=== PATIENT | female | born 1990 | race Caucasian/White ===

== ENCOUNTER 2020-11-28 14:11 | Emergency (ER) | payer OTHER, MEDICAID, SELFPAY ==
[2020-11-28] VITALS (10 sets, daily range): BP systolic 105–129; BP diastolic 62–80; PULSE 86–103; RESP 14–18; TEMP 36.9; O2SAT 93–98; BMI 23.1
[2020-11-28 14:42] LABS: COVID19 -Nasal RAPID Negative (Negative)
[2020-11-28] MEDS: ALBUTEROL/IPRATROPIUM 3 ML AMPUL INH (16:40)
--- NOTE | 2020-11-28 17:14 | DI.RAD.S_ITS ---
PROCEDURE: XR CHEST 2V INDICATIONS: sob, asthma TECHNIQUE: 2 views of the chest were acquired. COMPARISON: None. FINDINGS: Surgical changes and devices: None. Lungs and pleura: Lungs are clear. No pleural effusions or pneumothorax. Mediastinum: Mediastinal contours are normal. Heart size is normal. Bones and chest wall: No suspicious bony abnormalities. Soft tissues appear unremarkable. IMPRESSION: No acute cardiopulmonary abnormalities or focal airspace disease. Dictated by: De Grimes M.D. on 11/28/2020 at 18:43 Approved by: De Grimes M.D. on 11/28/2020 at 18:44
--- NOTE | 2020-11-28 19:28 | ED_ITS ---
HPI - SOB/Dyspnea <JEMIMA Vaughn - Last Filed: 11/28/20 19:32> General Chief Complaint: Shortness of Breath/Dyspnea Stated Complaint: asthma attacks, sent from [facility] Time Seen by Provider: 11/28/20 15:26 Source: patient Mode of arrival: Ambulatory Limitations: no limitations History of Present Illness HPI Narrative: The patient is a 30-year-old female nonsmoker with history of asthma presents with a chief complaint of an asthma exacerbation. She has been using her inhaler at least 6 times per day, not using a spacer. She states she has a dry cough, sometimes productive sometimes not, denies any fevers nausea vomiting or diarrhea. She states that she was on steroids twice recently for her asthma, but then got worse again. She states her breathing gets worse after exercise outside and exposure to cats, though she has not been around cats recently. Related Data Previous Rx's Medication Instructions Recorded albuterol sulfate 90 mcg/actuation 2 puff INHALATION Q4-6H PRN #18 g 10/30/20 aerosol inhaler methylprednisolone 4 mg tablets in See Rx Instructions PO PER PKG DIR 11/09/20 a dose pack #21 ea ipratropium-albuterol 3 ml INHALATION Q3-4H PRN #90 ml 11/28/20 nebulizer and compressor #1 ea 11/28/20 prednisone 40 mg PO DAILY 5 Days #10 tab 11/28/20 Allergies Allergy/AdvReac Type Severity Reaction Status Date / Time No Known Drug Allergies Allergy Verified 11/28/20 14:22 Review of Systems <JEMIMA Vaughn - Last Filed: 11/28/20 19:32> Review of Systems Narrative: GENERAL: Denies chills, fatigue, malaise, fever, sweats. HEENT: Denies sinus pain, ear pain, sore throat, difficulty swallowing, dizziness. RESPIRATORY: See HPI CARDIOVASCULAR: Denies chest pain, palpitations, orthopnea, edema, GASTROINTESTINAL: Denies nausea, vomiting, abdominal pain, diarrhea, constipation, melena. : Denies dysuria, frequency, incontinence, hematuria, urinary retention. MUSCULOSKELETAL: denies weakness, joint pain, or bony pain SKIN: Denies rash, skin lesions, or other NEUROLOGIC: Denies weakness, headache, numbness, change in speech, confusion, seizures, incoordination. PSYCHIATRIC: No concerning psychosocial issues. 12 point review of systems is negative except for those stated above Patient History <JEMIMA Vaughn - Last Filed: 11/28/20 19:32> Social History Smoking Status: Unknown if ever smoked Smoking Status: Unknown if ever smoked alcohol intake frequency: holidays/special occasions only Substance Use Type: does not use Exam <JEMIMA Vaughn - Last Filed: 11/28/20 19:32> Narrative Exam Narrative: GENERAL: This is a well-nourished, well-developed patient, in no acute distress HEAD: Atraumatic. Normocephalic. No temporal or scalp tenderness. EYES: Pupils equal round and reactive. Extraocular motions intact. No scleral icterus. No injection or drainage. ENT: Nose without bleeding, purulent drainage or septal hematoma. Wearing a mask Airway patent. NECK: Trachea midline. No JVD or lymphadenopathy. Supple, nontender, no meningeal signs. CARDIOVASCULAR: Regular rate and rhythm RESPIRATORY: Clear to auscultation. Breath sounds equal bilaterally. Expiratory wheeze, speaking full sentences, laying on stretcher relax BACK: Nontender without deformity or crepitance. No flank tenderness. NEURO: AOx3. SKIN: No rash or erythema on visible skin Initial Vital Signs Initial Vital Signs: Vital Signs Temperature 98.4 F 11/28/20 14:16 Pulse Rate 86 11/28/20 14:16 Respiratory Rate 14 11/28/20 14:16 Blood Pressure 125/62 11/28/20 14:16 Pulse Oximetry 94 11/28/20 14:16 <Telly Flanagan DO - Last Filed: 11/28/20 19:43> Initial Vital Signs Initial Vital Signs: Vital Signs Temperature 98.4 F 11/28/20 14:16 Pulse Rate 86 11/28/20 14:16 Respiratory Rate 14 11/28/20 14:16 Blood Pressure 125/62 11/28/20 14:16 Pulse Oximetry 94 11/28/20 14:16 Scores <JEMIMA Vaughn - Last Filed: 11/28/20 19:32> GCS Noemi coma scale eye opening: Spontaneous [place] coma scale verbal response: Orientated Noemi coma scale motor response: Obey commands Noemi coma scale total score: 15 Course <JEMIMA Vaughn - Last Filed: 11/28/20 19:32> Orders Ordered: ED Orders 11/28/20 14:21 COVID19 -Nasal swab/Pre-Proc Stat 11/28/20 16:16 RT Consult Eval and Treat NOW 11/28/20 17:14 XR chest 2V Stat Discontinued Medications Albuterol/Ipratropium (Albuterol/Ipratropium 3 Ml Ampul) 3 ml INH NOW ONE Stop: 11/28/20 16:37 Last Admin: 11/28/20 16:40 Dose: 3 ml Documented by: STHOMP Vital Signs Vital signs: Vital Signs - 8 hr 11/28/20 14:16 11/28/20 15:43 11/28/20 16:00 Temperature 98.4 F Pulse Rate 86 99 H 99 H Respiratory Rate 14 Blood Pressure 125/62 105/80 115/72 Pulse Oximetry 94 93 96 11/28/20 16:30 11/28/20 16:57 11/28/20 17:00 Temperature Pulse Rate 93 H 100 H 95 H Respiratory Rate 18 Blood Pressure 107/72 108/75 Pulse Oximetry 95 97 94 11/28/20 17:30 11/28/20 18:00 11/28/20 18:30 Temperature Pulse Rate 100 H 103 H 96 H Respiratory Rate Blood Pressure 114/74 121/74 129/80 Pulse Oximetry 97 96 98 11/28/20 19:00 Temperature Pulse Rate 99 H Respiratory Rate Blood Pressure 121/74 Pulse Oximetry 97 <Telly Flanagan DO - Last Filed: 11/28/20 19:43> Orders Ordered: ED Orders 11/28/20 14:21 COVID19 -Nasal swab/Pre-Proc Stat 11/28/20 16:16 RT Consult Eval and Treat NOW 11/28/20 17:14 XR chest 2V Stat Discontinued Medications Albuterol/Ipratropium (Albuterol/Ipratropium 3 Ml Ampul) 3 ml INH NOW ONE Stop: 11/28/20 16:37 Last Admin: 11/28/20 16:40 Dose: 3 ml Documented by: STHOMP Vital Signs Vital signs: Vital Signs - 8 hr 11/28/20 14:16 11/28/20 15:43 11/28/20 16:00 Temperature 98.4 F Pulse Rate 86 99 H 99 H Respiratory Rate 14 Blood Pressure 125/62 105/80 115/72 Pulse Oximetry 94 93 96 11/28/20 16:30 11/28/20 16:57 11/28/20 17:00 Temperature Pulse Rate 93 H 100 H 95 H Respiratory Rate 18 Blood Pressure 107/72 108/75 Pulse Oximetry 95 97 94 11/28/20 17:30 11/28/20 18:00 11/28/20 18:30 Temperature Pulse Rate 100 H 103 H 96 H Respiratory Rate Blood Pressure 114/74 121/74 129/80 Pulse Oximetry 97 96 98 11/28/20 19:00 Temperature Pulse Rate 99 H Respiratory Rate Blood Pressure 121/74 Pulse Oximetry 97 MDM - SOB/Dyspnea <JEMIMA Vaughn - Last Filed: 11/28/20 19:32> Lab Data Labs: Lab Results 11/28/20 Range/Units 14:21 SARS-CoV-2 (PCR) Negative (Negative) Imaging Data Chest x-ray: Radiologist's Impression: [address] [place] [id number] ReportSigned Patient: Eber Olson#: [id number]: 1990Acct:[id number]/Sex: 30 / FDate of Service: 11/28/20Loc: EDAccession Number: [id number] Procedure: XR chest 2V Ordering Provider: Reema Cherry PROCEDURE: XR CHEST 2V INDICATIONS: sob, asthma TECHNIQUE: 2 views of the chest were acquired. COMPARISON: None. FINDINGS: Surgical changes and devices: None. Lungs and pleura: Lungs are clear. No pleural effusions or pneumothorax. Mediastinum: Mediastinal contours are normal. Heart size is normal. Bones and chest wall: No suspicious bony abnormalities. Soft tissues appear unremarkable. IMPRESSION: No acute cardiopulmonary abnormalities or focal airspace disease. Dictated by: De Grimes M.D. on 11/28/2020 at 18:43 Approved by: De Grimes M.D. on 11/28/2020 at 18:44 [facility] Narrative Medical decision making narrative: The patient is a 30-year-old female who presents with a chief complaint of an asthma exacerbation. Given that she has been on steroids multiple times recently x-ray was taken to rule out any infectious etiology. This resulted negative. She had a respiratory therapy eval and treat, and felt improved after the nebulizer. Thus I gave her prescription of a nebulizer. I encouraged at length follow up with primary care provider in the next few days. She may benefit from an asthma preventative medication and or allergy/immunology testing. I discussed at length coming back to the ER for any acute concerns. Patient has no questions or concerns upon discharge states understanding return precautions as well as follow-up care. She has been hemodynamically stable throughout her stay in the emergency department. <Telly Flanagan, DO - Last Filed: 11/28/20 19:43> Lab Data Labs: Lab Results 11/28/20 Range/Units 14:21 SARS-CoV-2 (PCR) Negative (Negative) Discharge Plan Departure Patient Disposition: Home Clinical Impression: Asthma with exacerbation Qualifiers: Asthma severity: unspecified severity Asthma persistence: unspecified Qualified Code(s): J45.901 - Unspecified asthma with (acute) exacerbation Instructions: DI for Asthma -- Adult, How to Use a Nebulizer, How to Use Metered-Dose Inhalers Activity Restrictions/Additional Instructions: Thank you for trusting us with your care today. As discussed, your COVID-19 test resulted negative and your x-ray no evidence of pneumonia. However given your increased wheezing and shortness of breath I have placed you on a burst of steroids. Please start this tomorrow. I have also given you a prescription for a nebulizer as well as medication for this. Please follow-up with primary care provider in the next few days. You may benefit from allergy testing, and asthma preventative medication, etcetera Please come back to the emergency department for any acute concerns Prescriptions: New prednisone 20 mg tablet 40 mg PO DAILY 5 Days Qty: 10 RF: 0 ipratropium-albuterol 0.5 mg-3 mg(2.5 mg base)/3 mL solution for nebulization 3 ml inhalation Q3-4H PRN (Reason: shortness of breath or wheezing) Qty: 90 RF: 0 (DME) nebulizer and compressor Device See Rx Instructions .ROUTE .MEDSUPPLY Qty: 1 RF: 0 No Action methylprednisolone [Medrol (Leandro)] 4 mg tablets,dose pack See Rx Instructions PO PER PKG DIR Qty: 21 RF: 0 methylprednisolone sod suc(PF) [Solu-Medrol (PF)] 125 mg/2 mL recon soln 125 mg IM ONCE Qty: 1 RF: 0 albuterol sulfate [Proventil HFA] 90 mcg/actuation HFA aerosol inhaler 2 puff inhalation Q4-6H PRN (Reason: shortness of breath or wheezing) Qty: 18 RF: 0 Referrals: Edwina Haro PA-C [Primary Care Provider] - <Telly Flanagan, - Last Filed: 11/28/20 19:43> Cosign ED Attending Cosignature Attestation: Dr Flanagan Co-Sign Statement: I was available for consultation during this patient's emergency department visit. This chart is signed by myself for administrative purposes only. I did not have direct contact with this patient during this visit. They were seen independently by the APC.
== END 2020-11-28 19:20 | disposition home or self-care (01) ==
PROVIDERS: Emergency Medicine; Emergency Provider Nurse Practitioner Family; PCP Physician Assistant
DX: J45.901 Unspecified asthma with (acute) exacerbation (principal); R05 Cough; Z20.822 Contact with and (suspected) exposure to COVID-19
CPT/HCPCS: 71046; 87635; 94150; 99283; C9803

== ENCOUNTER → 2021-02-01 13:08 | Outpatient (CLI) | payer OTHER, MEDICAID, SELFPAY ==
[2021-02-01 19:31] LABS: COVID19 - ORCAS (NP or Nasal) Negative (Negative)
== END ==
PROVIDERS: PCP Physician Assistant; Referring Provider Family Medicine; Visit Provider Family Medicine
DX: Z20.822 Contact with and (suspected) exposure to COVID-19 (principal); J45.40 Moderate persistent asthma, uncomplicated; R06.2 Wheezing
CPT/HCPCS: U0003

== ENCOUNTER 2021-09-10 18:40 | Inpatient (IN) | payer OTHER, MEDICAID, SELFPAY ==
[2021-09-10 18:48] VITALS: BP 107/60; PULSE 88; RESP 20; TEMP 36.8; O2SAT 99
--- NOTE | 2021-09-10 18:57 | ED_ITS ---
HPI - Overdose General Chief Complaint: Toxicology Problem Stated Complaint: tylenol 20 tabs, 2200 last night. Time Seen by Provider: 09/10/21 18:44 Source: patient Mode of arrival: Ambulatory Limitations: no limitations History of Present Illness HPI Narrative: This is a 31-year-old female who comes in with complaint of acetaminophen ingestion. Patient states she took approximately 20-25 tablets of 500 mg Tylen ol at 10:00 p.m. on 09/09/2021. Patient states she has been having depressed thoughts, she has significant financial debt and this has been weighing on her. She has had thoughts of harming herself because of because she does not feel that she can resolve these issues. She is unclear of her true intent was to kill herself she states she also had cramps but when asked if she intentionally took that many tablets she says yes. She states she informed her boyfriend who drove her here after waking up this morning being quite sleepy and then having some nausea and vomiting. Patient states that she has had thoughts and attempts to harm herself in the past she denies any prior voluntary or involuntary hospitalizations. Patient states she has had epigastric and abdominal pain, nausea with some vomiting today. No fevers but has had some chills. She denies chest pain or shortness of breath. No cough, cold or congestion. Patient has not had any diarrhea constipation. No swelling in her extremities. She uses albuterol and a daily steroid inhaler. She denies any other daily medications. She denies prior surgeries. No known drug allergies. Patient denies tobacco, she states rare alcohol, no illicit. Edwina Haro is her primary care. She has attempted to set up appointments for mental health but has not been seen 2nd to lack of access. Related Data Previous Rx's Medication Instructions Recorded nebulizer and compressor #1 ea 11/28/20 albuterol sulfate 90 mcg/actuation 2 puff INHALATION Q4-6H PRN #18 g 03/06/21 aerosol inhaler (Proventil HFA) fluticasone 500 mcg-salmeterol 50 1 inh INHALATION Q12H #60 ea 03/06/21 mcg/dose blistr powdr for inhalation (Advair Diskus) prednisone 20 mg tablet 20 mg PO DAILY #8 tab 03/06/21 Allergies Allergy/AdvReac Type Severity Reaction Status Date / Time No Known Drug Allergies Allergy Verified 11/28/20 14:22 Review of Systems Review of Systems ROS Unobtainable: All systems reviewed & are unremarkable except as noted in HPI and below Patient History Medical History (Updated 09/11/21 @ 00:06 by JEROD Panda) Acute bacterial bronchitis Surgical History (Updated 09/11/21 @ 00:07 by JEROD Panda) No history of previous surgery Social History household members: significant other Smoking Status: Never smoker Smoking Status: Never smoker alcohol intake frequency: holidays/special occasions only Substance Use Type: does not use Exam Narrative Exam Narrative: GENERAL: Alert and oriented x three, female, in mild distress. HEENT: Head normocephalic, atraumatic, EOMI, pupils reactive, face symmetric, moist mucous membranes NECK: Supple, full range of motion CARDIOVASCULAR: Regular rate and rhythm without murmurs, rubs or gallops. RESPIRATORY: Breath sounds equal bilaterally, no wheezes rales or rhonchi. ABDOMEN: Soft, positive for epigastric tenderness. Normoactive bowel sounds all 4 quadrants. No guarding or rebound, rigidity, no mass : No CVA tenderness EXTREMITIES: Normal range of motion, no clubbing or edema. Neurovascularly intact NEUROLOGICAL: Cranial nerves II through XII grossly intact. Moving all extremities SKIN: Warm, dry, no petechiae, no rashes or lesions. PYSCH: Patient denies active suicidal ideation or intent, she did attempt yesterday, she describes anxiety and depressive symptoms. Initial Vital Signs Initial Vital Signs: Vital Signs Temperature 98.2 F 09/10/21 18:48 Pulse Rate 88 09/10/21 18:48 Respiratory Rate 20 09/10/21 18:48 Blood Pressure 107/60 09/10/21 18:48 Pulse Oximetry 99 09/10/21 18:48 Course Orders Ordered: ED Orders 09/10/21 18:55 Consult to ANATOMIC PATHOLOGY ASSISTANT - [employer] Developer Stat 09/10/21 19:20 Acetaminophen Stat Complete Blood Count AUTO DIFF Stat Comprehensive Metabolic Panel Stat Ethanol (ETOH) Stat Hepatic (Liver) Panel Stat Lipase Stat Salicylate Stat 09/10/21 19:43 COVID19 -Nasal swab/Pre-Proc Stat 09/10/21 20:10 Ammonia (NH3) Stat Lactate (Lactic Acid) Stat PTT [Partial Thromboplastin Time] Stat Prothrombin Time INR Stat 09/10/21 21:30 Urine Drug Screen, Rapid Stat Enoxaparin Sodium (Enoxaparin 40 Mg/0.4 Ml Syringe) 40 mg SUBCUT DAILY MARILIA Acetylcysteine 3.96343 g/ (Dextrose) 515.8758 mls @ 128.969 mls/hr IV NOW ONE Stop: 09/11/21 02:59 Last Admin: 09/10/21 23:02 Dose: 128.969 mls/hr Documented by: QUINCY Acetylcysteine 6.3503 g/ (Dextrose) 1,031.7515 mls @ 64.484 mls/hr IV NOW ONE Stop: 09/11/21 18:59 Ibuprofen (Ibuprofen 600 Mg Tablet) 600 mg PO Q6HR PRN PRN Reason: Fever/Mild Pain (1-3) Naloxone HCl (Naloxone 0.4 Mg/Ml Vial) 0.2 mg IV Q2MIN PRN PRN Reason: Opiate Reversal Discontinued Medications Sodium Chloride (Normal Saline 0.9%) 1,000 mls @ 1,000 mls/hr IV BOLUS ONE Stop: 09/10/21 19:54 Last Infusion: 09/10/21 20:46 Dose: 0 mls/hr Documented by: Admin: 09/10/21 19:43 Dose: 1,000 mls/hr Documented by: LIDIA Acetylcysteine 9.54743 g/ (Dextrose) 247.6273 mls @ 247.627 mls/hr IV NOW ONE Stop: 09/10/21 19:54 Last Infusion: 09/10/21 21:26 Dose: 0 mls/hr Documented by: Admin: 09/10/21 20:16 Dose: 247.627 mls/hr Documented by: NICCI Acetylcysteine 3.71699 g/ (Dextrose) 515.8758 mls @ 128.969 mls/hr IV NOW ONE Stop: 09/10/21 19:54 Last Admin: 09/10/21 23:51 Dose: Not Given Documented by: QUINCY Acetylcysteine 6.3503 g/ (Dextrose) 1,031.7515 mls @ 64.484 mls/hr IV NOW ONE Stop: 09/10/21 19:54 Last Admin: 09/10/21 23:51 Dose: Not Given Documented by: QUINCY Acetylcysteine 3.62685 g/ (Dextrose) 515.8758 mls @ 128.969 mls/hr IV NOW ONE Stop: 09/10/21 21:31 Last Admin: 09/10/21 23:52 Dose: Not Given Documented by: QUINCY Ondansetron HCl (Ondansetron 4 Mg/2 Ml Inj) 4 mg IV NOW ONE Stop: 09/10/21 18:56 Last Admin: 09/10/21 19:43 Dose: 4 mg Documented by: LIDIA Reevaluation(s) Reevaluation #1: Patient updated of findings today and recommendations from poison Control. She is agreeable to hospitalization. Consultations Consultation #1: Poison control recommendations include Tylenol level which should be expected to be negative if elevated patient either took a larger dose or took recurrent amounts after the time frame described. If LFTs are normal patient can be discharged if elevated in any way NAC should be started and admitted for several days for serial LFTs. Time: 19:02 Consultation #2: Poison control recontacted, they state the patient should be on the standard dosing protocol for n-acetylcysteine not the high-dose. They recommend monitoring LFTs and INR 1 2 hours before complaining neck. If LFTs have normalized as well as an are can be stopped. If they are rising or not improving repeated dosing are recommended. Vital Signs Vital signs: Vital Signs - 8 hr 09/10/21 18:48 Temperature 98.2 F Pulse Rate 88 Respiratory Rate 20 Blood Pressure 107/60 Pulse Oximetry 99 MDM - Overdose Lab Data Result diagrams: 09/10/21 19:20 09/10/21 19:20 Labs: Lab Results 09/10/21 09/10/21 09/10/21 Range/Units 19:20 19:20 19:43 WBC 6.9 (4.5-11.0) X10^3/uL RBC 4.53 (4.0-5.2) X10^6/uL Hgb 13.4 (12.0-16.0) g/dL Hct 39.6 (36-46) % MCV 87.5 (80-100) fL MCH 29.6 (26-34) PG MCHC 33.8 (30-36) % RDW 13.0 (11.6-14.8) % Plt Count 286 (150-400) X10^3/uL Neut % (Auto) 83.9 H (50-75) % Lymph % (Auto) 9.4 L (25-40) % Jasper % (Auto) 5.1 (3-14) % Eos % (Auto) 1.1 L (2-4) % Baso % (Auto) 0.5 (0-2) % Neut # (Auto) 5800 (9781-1044) /uL Lymph # (Auto) 600 L (5676-7192) /uL Jasper # (Auto) 400 (0-900) /uL Eos # (Auto) 100 (0-450) /uL Baso # (Auto) 0 (0-100) /uL PT (10.1-12.7) SECONDS INR (0.9-1.3) APTT (26.4-36.2) SECONDS Sodium 137 (137-145) mmol/L Potassium 3.8 (3.4-5.1) mmol/L Chloride 107 (98-107) mmol/L Carbon Dioxide 21 L (22-32) mmol/L BUN 21 H (7-17) mg/dL Creatinine 0.73 (0.52-1.04) mg/dL Estimated GFR > 60.0 (>60) mL/min BUN/Creatinine Ratio 28.8 H (6-22) Glucose 96 (70-100) mg/dL Lactate (0.7-2.1) mmol/L Calcium 8.9 (8.4-10.2) mg/dL Total Bilirubin 0.6 (0.2-1.3) mg/dL Conjugated Bilirubin 0.0 (0.0-0.3) md/dL Unconjugated Bilirubin 0.6 (0.0-1.1) mg/dL AST 115 H (14-36) IU/L ALT 111 H (<35) IU/L Alkaline Phosphatase 65 (38-126) U/L Ammonia (9-30) umol/L Total Protein 7.6 (6.3-8.2) g/dL Albumin 4.4 (3.5-5.0) g/dL Globulin 3.2 (1.7-4.1) g/dL Albumin/Globulin Ratio 1.4 (1.0-2.8) Lipase 39 (23-300) U/L Salicylates < 1.0 (<20) mg/dL Acetaminophen 12 (10-30) ug/mL Ethyl Alcohol < 10 ( - 10) mg/dL SARS-CoV-2 (PCR) Negative (Negative) 09/10/21 09/10/21 09/10/21 Range/Units 20:10 20:10 20:10 WBC (4.5-11.0) X10^3/uL RBC (4.0-5.2) X10^6/uL Hgb (12.0-16.0) g/dL Hct (36-46) % MCV (80-100) fL MCH (26-34) PG MCHC (30-36) % RDW (11.6-14.8) % Plt Count (150-400) X10^3/uL Neut % (Auto) (50-75) % Lymph % (Auto) (25-40) % Jasper % (Auto) (3-14) % Eos % (Auto) (2-4) % Baso % (Auto) (0-2) % Neut # (Auto) (2378-4809) /uL Lymph # (Auto) (0872-0547) /uL Jasper # (Auto) (0-900) /uL Eos # (Auto) (0-450) /uL Baso # (Auto) (0-100) /uL PT 14.1 H (10.1-12.7) SECONDS INR 1.2 (0.9-1.3) APTT 33 (26.4-36.2) SECONDS Sodium (137-145) mmol/L Potassium (3.4-5.1) mmol/L Chloride (98-107) mmol/L Carbon Dioxide (22-32) mmol/L BUN (7-17) mg/dL Creatinine (0.52-1.04) mg/dL Estimated GFR (>60) mL/min BUN/Creatinine Ratio (6-22) Glucose (70-100) mg/dL Lactate 0.8 (0.7-2.1) mmol/L Calcium (8.4-10.2) mg/dL Total Bilirubin (0.2-1.3) mg/dL Conjugated Bilirubin (0.0-0.3) md/dL Unconjugated Bilirubin (0.0-1.1) mg/dL AST (14-36) IU/L ALT (<35) IU/L Alkaline Phosphatase (38-126) U/L Ammonia < 9 L (9-30) umol/L Total Protein (6.3-8.2) g/dL Albumin (3.5-5.0) g/dL Globulin (1.7-4.1) g/dL Albumin/Globulin Ratio (1.0-2.8) Lipase (23-300) U/L Salicylates (<20) mg/dL Acetaminophen (10-30) ug/mL Ethyl Alcohol ( - 10) mg/dL SARS-CoV-2 (PCR) (Negative) Point of Care Testing Test Results Negative MDM Narrative Medical decision making narrative: This is a 31-year-old female comes emergency department for complaint of Tylenol overdose. Patient states she took 20-25 tablets last night at about 10:00 p.m. she is somewhat evasive as to why, she initially states she had cramps but does admit to attempting to kill herself. She denies intent at this time. Patient's LFTs are very mildly elevated, renal function and other labs are normal she has had some abdominal pain and nausea but no active vomiting she had fluids, Zofran with some improvement. Poison control recommendation was re-contacted based on nomogram with a Tylenol level of 12 and elevated LFTs at this time and acetylcysteine should be initiated at standard protocol. Plan to continue to monitor LFTs shortly before the completion of NAC. If coags and LFTs are still elevated will need to continue to be treated. If resolved patient can be m edically cleared. Discussed with patient she is agreeable to admission. ANATOMIC PATHOLOGY ASSISTANT also soft patient here in the department. Naloxone at Discharge Patient criteria for naloxone at discharge: Other reason Reason patient is not provided naloxone?: Other reason (admitted for tylenol overdose.) Discharge Plan Departure Patient Disposition: Admitted as Observation Clinical Impression: Overdose on Tylenol Admit Date/Time: 09/10/21 20:40 Admit Provider: Sharla Kelly
[2021-09-10 19:31] LABS: Add Manual Diff / Slide Review NO; Basophils Absolute Auto 0 /uL (0-100); Basophils Percent Auto 0.5 % (0-2); Eosinophils Absolute Auto 100 /uL (0-450); Eosinophils Percent Auto 1.1 % (2-4); Hematocrit 39.6 % (36-46); Hemoglobin 13.4 g/dL (12.0-16.0); Lymphocytes Absolute Auto 600 /uL (1100-4500); Lymphocytes Percent Auto 9.4 % (25-40); Mean Corpuscular HGB Conc 33.8 % (30-36); Mean Corpuscular Hemoglobin 29.6 PG (26-34); Mean Corpuscular Volume 87.5 fL (80-100); Monocytes Absolute Auto 400 /uL (0-900); Monocytes Percent Auto 5.1 % (3-14); Neutrophils Absolute Auto 5800 /uL (1500-7000); Neutrophils Percent Auto 83.9 % (50-75); Platelet Count 286 X10^3/uL (150-400); Red Blood Cell Count 4.53 X10^6/uL (4.0-5.2); White Blood Cell Count 6.9 X10^3/uL (4.5-11.0)
[2021-09-10 19:43] LABS: Acetaminophen 12 ug/mL (10-30); Alanine Aminotransferase 111 IU/L (<35); Albumin 4.4 g/dL (3.5-5.0); Albumin Globulin Ratio 1.4 (1.0-2.8); Alkaline Phosphatase 65 U/L (38-126); Aspartate Aminotransferase 115 IU/L (14-36); BUN Creatinine Ratio 28.8 (6-22); Bilirubin Total 0.6 mg/dL (0.2-1.3); Bilirubin Unconjugated 0.6 mg/dL (0.0-1.1); Blood Urea Nitrogen 21 mg/dL (7-17); Calcium 8.9 mg/dL (8.4-10.2); Carbon Dioxide 21 mmol/L (22-32); Chloride 107 mmol/L (98-107); Estimated Glomerular Filt Rate > 60.0 mL/min (>60); Ethanol (ETOH) < 10 mg/dL; Globulin 3.2 g/dL (1.7-4.1); Glucose 96 mg/dL (70-100); HEMOLYSIS < 15 (0-50); Lipase 39 U/L (23-300); Potassium 3.8 mmol/L (3.4-5.1); Salicylate < 1.0 mg/dL (<20); Sodium 137 mmol/L (137-145); Total Protein 7.6 g/dL (6.3-8.2)
[2021-09-10] MEDS: SODIUM CHLORIDE 0.9% 1,000 ML 1000 ML IV (19:43)
[2021-09-10] MEDS: ONDANSETRON 4 MG/2 ML INJ IV (19:43)
--- NOTE | 2021-09-10 20:06 | CM.DANOTE ---
DCP Assessment Patient is 31 y/o female who presents to the ED after intentional overdose of 20-25 500 mg tylenol. Patient endorses intent to numb pain. Patient states that she is having debt issues and struggling with credit card payments with a tight budget. Patient endorses she was having cramp pains and wanted to numb the physical and emotional stress. Patient endorses she has been emotionally up and down. Patient denies current SI. Patient endorses hx of wanting to numb the pain when she could not sleep. Patient's PCP JEROD Barahona. Patient has [employer] and Medicaid. Patient has hx of Asthma. Patient endorses she resides with partner Rainer on [address]. It is reported that they live off of the [address] with spotty cell service and no internet. Patient endorses she feels safe at home. Patient endorses she feels safe at this hospital, feels cared for and connected. Patient denies HI and denies hx of self harm. Patient endorses that she moved here from [place] and before [facility] [place] and it has been difficult to see a doctor regularly or too seek MH services. Patient endorses she used to take antidepressants but does not currently. Patient endorses her supports are her partner, and her sister in [place]. Per ED provider and consult to poison control, patient is not medically clear due to high AST and ALT levels. Plan: Patient to be admitted to acute care for further medical evaluation, DCP to f/u with appropriate POC for patient when medically clear. MARIZA Jackson Discharge Planning/Care Management CM Discharge Assessment Start: 09/10/21 20:02 Freq: Status: Active Protocol: Document 09/10/21 20:02 DONALD (Rec: 09/10/21 20:05 LN [id number]) Discharge Planning Assessment Assigned Surveyor Helper MARIZA Mcgregor Advance Directives? No History Provided By Patient Has Patient been admitted in last 30 No days? Prior Living Arrangements House Comment Patient lives off the [address] on [facility] [facility] [address]. Household Members significant other Type of transporation used prior to Drives own vehicle admit Independent with ADL's Yes Is patient alert and oriented? Yes Comment Patient denies current SI and states she overdoses on Tylenol with intent to numb pain. Patient is not medically clear and will need further medical evaluation, patient to be admitted to acute care. Review Status In Process Please Provide Date Initial DC 09/10/21 Assessment Was Performed Next Review Type Continued Stay Review ED Psychiatric Symptoms Assessment Start: 09/10/21 19:36 Freq: Status: Active Protocol: Document 09/10/21 19:45 DKB (Rec: 09/10/21 19:52 DKB [id number]) Psychiatric Symptoms Assessment Symptoms/Complaint impulsive state Onset 09/10 Duration Resolved Prior to Arrival History Of Same Yes: over 4 years ago Context Unknown Improves With Nothing Worsens With Nothing Associated Psychiatric Symptoms None If Self Harm Has Acted on Plan,Intentional Overdose Details of Plan Pt reports that she impulsively took too many APAP yesterday, no longer feels as she did, does not currently want harm herself. 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
[2021-09-10] MEDS: DEXTROSE 5% IV ×2 (20:16→23:02)
[2021-09-10] MEDS: ACETYLCYSTEINE IV ×2 (20:16→23:02)
[2021-09-10] MEDS: WATER IV (20:16)
[2021-09-10 20:28] LABS: COVID19 -Nasal RAPID Negative (Negative)
[2021-09-10 20:42] LABS: INR 1.2 (0.9-1.3); Prothrombin Time 14.1 SECONDS (10.1-12.7)
[2021-09-10 20:45] LABS: PTT Partial Thromboplastin Tim 33 SECONDS (26.4-36.2)
[2021-09-10 20:48] LABS: Ammonia (NH3) < 9 umol/L (9-30); Lactate (Lactic Acid) 0.8 mmol/L (0.7-2.1)
[2021-09-10 21:50] VITALS: BMI 23.6
[2021-09-10 22:00] VITALS: BP 109/49; PULSE 94; RESP 15; TEMP 36.6; O2SAT 99
[2021-09-10 22:10] LABS: UR Morphine/Opiate cutoff 300 Negative (Negative); Ur Creatinine 50 (Normal); Ur Specific Gravity 1.025 (Normal); Urine Amphetamines Negative (Negative); Urine Barbiturates Negative (Negative); Urine Benzodiazepines Negative (Negative); Urine Cocaine Negative (Negative); Urine MDMA Negative (Negative); Urine Methadone Negative (Negative); Urine Methamphetamines Negative (Negative); Urine Oxycodone Negative (Negative); Urine Phencyclidine Negative (Negative); Urine Tetrahydrocannabinol Negative (Negative); Urine Tricyclic Antidepressant Negative (Negative); Urine pH 5 (Normal)
[2021-09-10 22:19] LABS: Bacteria Urine Many (>30); RBC Urine 1-5/HPF (0-5/HPF); Squamous Epithelial Cell Urine 0-1 /HPF (0-5/HPF); WBC Urine 1-5/HPF (0-5/HPF)
[2021-09-10] MEDS: [UNRECOGNIZED DRUG - OTHER] IV (23:02)
[2021-09-11] VITALS (8 sets, daily range): BP systolic 100–111; BP diastolic 50–64; PULSE 81–93; RESP 16–22; TEMP 36.6–37.1; O2SAT 95–99; BMI 23.6
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
[2021-09-11] MEDS: ACETYLCYSTEINE IV ×2 (02:40→18:45)
[2021-09-11] MEDS: [UNRECOGNIZED DRUG - OTHER] IV ×2 (02:40→18:45)
[2021-09-11 06:03] LABS: Add Manual Diff / Slide Review NO; Basophils Absolute Auto 0 /uL (0-100); Basophils Percent Auto 0.5 % (0-2); Eosinophils Absolute Auto 200 /uL (0-450); Eosinophils Percent Auto 3.6 % (2-4); Hematocrit 37.9 % (36-46); Hemoglobin 12.7 g/dL (12.0-16.0); Lymphocytes Absolute Auto 1300 /uL (1100-4500); Lymphocytes Percent Auto 19.3 % (25-40); Mean Corpuscular HGB Conc 33.4 % (30-36); Mean Corpuscular Hemoglobin 29.2 PG (26-34); Mean Corpuscular Volume 87.4 fL (80-100); Monocytes Absolute Auto 400 /uL (0-900); Monocytes Percent Auto 6.3 % (3-14); Neutrophils Absolute Auto 4600 /uL (1500-7000); Neutrophils Percent Auto 70.3 % (50-75); Platelet Count 262 X10^3/uL (150-400); Red Blood Cell Count 4.34 X10^6/uL (4.0-5.2); Red Cell Distribution Width 13.1 % (11.6-14.8); White Blood Cell Count 6.5 X10^3/uL (4.5-11.0)
[2021-09-11 06:12] LABS: Alanine Aminotransferase 107 IU/L (<35); Albumin 3.5 g/dL (3.5-5.0); Albumin Globulin Ratio 1.3 (1.0-2.8); Alkaline Phosphatase 38 U/L (38-126); Aspartate Aminotransferase 74 IU/L (14-36); Bilirubin Total 0.6 mg/dL (0.2-1.3); Bilirubin Unconjugated 0.8 mg/dL (0.0-1.1); Blood Urea Nitrogen 14 mg/dL (7-17); Calcium 8.1 mg/dL (8.4-10.2); Carbon Dioxide 22 mmol/L (22-32); Chloride 107 mmol/L (98-107); Estimated Glomerular Filt Rate > 60.0 mL/min (>60); Globulin 2.8 g/dL (1.7-4.1); Glucose 113 mg/dL (70-100); HEMOLYSIS < 15 (0-50); Potassium 3.4 mmol/L (3.4-5.1); Sodium 136 mmol/L (137-145); Total Protein 6.3 g/dL (6.3-8.2)
[2021-09-11 07:03] LABS: INR 1.6 (0.9-1.3); Prothrombin Time 18.1 SECONDS (10.1-12.7)
[2021-09-11] MEDS: ENOXAPARIN 40 MG/0.4 ML SYRINGE SUBCUT (08:48)
[2021-09-11] MEDS: POTASSIUM CHLORIDE 20 MEQ TAB 40 MEQ PO (10:07)
[2021-09-11 15:35] LABS: INR 1.5 (0.9-1.3); Prothrombin Time 16.7 SECONDS (10.1-12.7)
[2021-09-11 15:40] LABS: Acetaminophen < 10 ug/mL (10-30); Alanine Aminotransferase 241 IU/L (<35); Albumin 3.4 g/dL (3.5-5.0); Albumin Globulin Ratio 1.3 (1.0-2.8); Alkaline Phosphatase 56 U/L (38-126); Aspartate Aminotransferase 283 IU/L (14-36); Bilirubin Total 0.3 mg/dL (0.2-1.3); Bilirubin Unconjugated 0.4 mg/dL (0.0-1.1); Globulin 2.7 g/dL (1.7-4.1); HEMOLYSIS < 15 (0-50); Total Protein 6.1 g/dL (6.3-8.2)
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
[2021-09-11] MEDS: ONDANSETRON 4 MG/2 ML INJ IV (20:22)
[2021-09-12] VITALS (11 sets, daily range): BP systolic 99–116; BP diastolic 54–73; PULSE 77–93; RESP 12–24; TEMP 36.5–37.1; O2SAT 96–99
[2021-09-12 05:41] LABS: Alanine Aminotransferase 704 IU/L (<35); Albumin 3.6 g/dL (3.5-5.0); Albumin Globulin Ratio 1.2 (1.0-2.8); Alkaline Phosphatase 43 U/L (38-126); Aspartate Aminotransferase 720 IU/L (14-36); BUN Creatinine Ratio 17.2 (6-22); Bilirubin Total 0.4 mg/dL (0.2-1.3); Blood Urea Nitrogen 11 mg/dL (7-17); Calcium 8.4 mg/dL (8.4-10.2); Carbon Dioxide 26 mmol/L (22-32); Chloride 107 mmol/L (98-107); Estimated Glomerular Filt Rate > 60.0 mL/min (>60); Globulin 2.9 g/dL (1.7-4.1); Glucose 103 mg/dL (70-100); HEMOLYSIS 24 (0-50); Potassium 4.1 mmol/L (3.4-5.1); Sodium 136 mmol/L (137-145); Total Protein 6.5 g/dL (6.3-8.2)
[2021-09-12 06:47] LABS: INR 1.2 (0.9-1.3); Prothrombin Time 13.5 SECONDS (10.1-12.7)
[2021-09-12] MEDS: ENOXAPARIN 40 MG/0.4 ML SYRINGE SUBCUT (08:48)
--- NOTE | 2021-09-12 11:08 | PM.PN.1 ---
Subjective Subjective Date Patient Seen: 09/12/21 Interval history: Patient reports nausea today. She also complains of shortness of breath. She would like to resume her inhaler. Her LFT's are elevated and increasing. She denies any abdominal pain. Discussed with poison control. They recommend continuing the NAC, and following liver function tests closely Exam Vital Signs (past 8 hours): - 09/12/21 04:25 09/12/21 07:50 09/12/21 08:20 Temperature 97.7 F 98.1 F Pulse Rate 77 85 Respiratory Rate 14 16 Blood Pressure 99/59 L 105/73 Pulse Oximetry 96 97 97 Oxygen Delivery Method Room Air Oxygen Flow Rate 0 Narrative Exam Narrative: Pleasant female with somewhat flat affect, tearful Resp Other: Lungs clear to auscultation Cardio Other: Cardiac exam: Regular rate rhythm normal S1-S2 GI Other: Abdomen: Soft nontender nondistended Extrem Other: Extremity: No edema Objective Labs Result Diagrams: 09/11/21 05:15 09/12/21 05:15 Labs: Laboratory Results - last 24 hr 09/11/21 09/11/21 09/12/21 15:19 15:19 05:15 PT 16.7 H INR 1.5 H Sodium 136 L Potassium 4.1 Chloride 107 Carbon Dioxide 26 BUN 11 Creatinine 0.64 Estimated GFR > 60.0 BUN/Creatinine Ratio 17.2 Glucose 103 H Calcium 8.4 Total Bilirubin 0.3 0.4 Conjugated Bilirubin 0.0 Unconjugated Bilirubin 0.4 AST 283 H 720 H ALT 241 H 704 H Alkaline Phosphatase 56 43 Total Protein 6.1 L 6.5 Albumin 3.4 L 3.6 Globulin 2.7 2.9 Albumin/Globulin Ratio 1.3 1.2 Acetaminophen < 10 L 09/12/21 06:29 PT 13.5 H INR 1.2 Sodium Potassium Chloride Carbon Dioxide BUN Creatinine Estimated GFR BUN/Creatinine Ratio Glucose Calcium Total Bilirubin Conjugated Bilirubin Unconjugated Bilirubin AST ALT Alkaline Phosphatase Total Protein Albumin Globulin Albumin/Globulin Ratio Acetaminophen [facility] Medical History (Updated 09/11/21 @ 00:06 by JEROD Panda) Acute bacterial bronchitis Surgical History (Updated 09/11/21 @ 00:07 by JEROD Panda) No history of previous surgery Social History household members: significant other Smoking Status: Never smoker Assessment & Plan Assessment & Plan narrative: 1. Acetaminophen overdose -patient reports in inverted overdose of Tylenol -she admits to stressors, and is tearful -she denies suicidal ideation -will continue NAC S directed by poison Control, follow-up LFTs -psych consult while an inpatient 2. Asthma -resume outpatient inhalers Patient will remain in the hospital until liver function studies have improved. Time Spent With Patient Critical Care time: I spent a total of [] minutes of critical care time on this patient's care today; this time is exclusive of procedural time. Quality VTE Deep Vein Thrombosis/Pulmonary Embolism Present on Admission: No
[2021-09-12] MEDS: [UNRECOGNIZED DRUG - OTHER] IV (11:17)
[2021-09-12] MEDS: ACETYLCYSTEINE IV (11:17)
[2021-09-12] MEDS: ONDANSETRON 4 MG/2 ML INJ IV (12:30)
--- NOTE | 2021-09-12 12:33 | PC.NURSE ---
Addendum entered by Kirstin Nicole R.N. 09/12/21 18:03: 1500 assessment. pt sleeping in room. IVF infusing. call light in reach. Original Note: boyfriend in room helping her go to the bathroom. door remains open at all times. pt report nausea when eating, I gave her zofran so she could try eating her lunch. voiding without difficulty.
[2021-09-12] MEDS: ALBUTEROL 2.5 MG/3 ML NEB (ADULT) INH ×3 (12:34→20:30)
--- NOTE | 2021-09-12 12:56 | P.CONS_ITS ---
History of Present Illness Consult details Date Patient Seen: 09/12/21 Time Patient Seen: 13:00 Chief complaint: Acetaminophen overdose Reason for consult: Rule out depression and suicide attempt Requesting provider: Celia Bhakta Narrative: REFERRAL INFORMATION This is the first psychiatric evaluation for this 31-year-old female referred by hospitalist for evaluation of possible depression and suicide attempt in the context of an inadvertent acetaminophen overdose. RECORDS REVIEW The patient?s referral documents, medical records and intake questionnaire were reviewed as part of this evaluation. CONSULT QUESTION CHIEF COMPLAINT ?I have just been going through a rough time.? HISTORY OF PRESENT ILLNESS The patient was in her usual state of fairly good health until yesterday when she had difficulty with significant menstrual cramps and started to take Tylenol. It soon ?got out of hand? and the patient ended up taking 20-25 tablets of 500 mg acetaminophen. She became immediately concerned, informed her boyfriend, who brought her in for medical attention. The patient was admitted through the emergency department and started on an acetyl cystine. The patient reports a history of several months of worsening financial stressors. The patient had come to [facility] with her boyfriend last spring to visit the boyfriend's aunt and uncle. The patient and her boyfriend were [facility] and had just moved to [place] from [facility]. Shortly after visiting, the aunt became ill with a cerebral aneurysm and the uncle requested their help in taking care of her noting that they had no employment number relatively free at the time. After the aunt recovered, they decided to stay on [facility] and enjoyed ?living off the grid? somewhat. 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 Unfortunately, just as winter arrived, there business decreased drastically and there also kicked out of their rental house. They found another rental which [place] essentially [place] [address] [place] [address] [place] [address] [place] was quite [place]. Has well water, electricity from a solar panel, and an out house. Although is kind of fun to live in a primitive environment for awhile, over the course of the winter it soon became quite dreary. Despite having some electricity, they had very poor to almost no cell phone coverage. The patient reported that as the dark months ensued, she became more depressed and discouraged. The patient complains of difficulty with moderately depressed mood, increased sleep, decreased energy, no motivation, anhedonia, poor concentration, and vague nihilistic thoughts. She denies any symptoms of almita, psychosis, or PTSD. The patient currently denies any suicidal or homicidal ideation, intent, or plan. PAST PSYCHIATRIC HISTORY * Diagnoses: Moderate depression a couple of years ago when living in [facility] * Inpatient: None. * Outpatient: Saw therapist which she found most helpful. Previously saw psychiatrist who started her on an unknown antidepressant but did not have good follow-up. * Suicide Attempts: None. PREVIOUS PSYCHIATRIC MEDICATION TRIALS One prior brief trial of an unknown antidepressant. CURRENT PSYCHOTROPIC MEDICATIONS None FAMILY HISTORY * Maternal: Possible history of untreated depression in mother * Paternal: None. * Siblings: None. SUBSTANCE USE HISTORY * Tobacco: The patient does not smoke. * Alcohol: The patient does not drink. No history of abuse. * Drugs: The patient does not use drugs. DEVELOPMENTAL AND SOCIAL HISTORY * Family Constellation/Environment: Patient was born and raised in [facility] [place] and describes a generally unremarkable childhood. * Childhood Trauma: The patient denied any history of physical or sexual abuse, and has no history of witnessing violence as a child. * Developmental milestones: The patient reached normal developmental milestones. * Education: The patient was an adequate student in school and graduated from high school. * Employment: The patient states that she ?won the [employer]? and was able to get a diversity visa to the [place] to immigrate. * Relationships: The patient is never , no children, but currently has a boyfriend she considers her partner. She also has some relatives in [facility] in [place]. * Current Living: Lives with boyfriend on [facility] * Support: Income from employment. * Legal: No current legal difficulties. HISTORY * None. * Deployments: N/A * Combat Exposure: N/A * Blast Exposure: N/A SIGNIFICANT MEDICAL HISTORY * PCP: None known * Allergies: NKDA * Medical Problems: History of exercise-induced asthma. * Current Medications: See list above. * Herbals/Supplements: None. Meds Home Medications and Allergies Home Medications Medication Instructions Recorded Confirmed Type nebulizer and compressor #1 ea 11/28/20 09/11/21 Rx albuterol sulfate 90 mcg/actuation 2 puff INHALATION Q4-6H PRN #18 g 03/06/21 09/11/21 Rx aerosol inhaler (Proventil HFA) fluticasone 500 mcg-salmeterol 50 1 inh INHALATION Q12H #60 ea 03/06/21 09/11/21 Rx mcg/dose blistr powdr for inhalation (Advair Diskus) prednisone 20 mg tablet 20 mg PO DAILY #8 tab 03/06/21 09/11/21 Rx Allergies Allergy/AdvReac Type Severity Reaction Status Date / Time No Known Drug Allergies Allergy Verified 11/28/20 14:22 Review of Systems Review of Systems ROS: Yes All systems reviewed with the patient and are negative except as otherwise documented Exam Vital Signs (past 8 hours): - 09/12/21 07:50 09/12/21 08:20 09/12/21 12:34 Temperature 98.1 F Pulse Rate 85 85 Respiratory Rate 16 14 Blood Pressure 105/73 Pulse Oximetry 97 97 99 Oxygen Delivery Method Room Air Oxygen Flow Rate 0 Narrative Exam Narrative: MENTAL STATUS EXAM * Appearance: The patient is a rather petite but well-developed and well- nourished female who appears her stated age. * Grooming: She is seen in her hospital room neatly dressed in hospital gown lying in bed. * Behavior: Calm and cooperative with the evaluation * Gait: Not test * Speech: Normal rate, volume, and devaughn * Mood: ?Kind of down lately. * Affect: Pleasant, smiling, generally neutral for the most part, but mildly dysphoric. Congruent with content, normal range and reactivity * Thought Process: Linear, logical, and goal-directed * Thought Content: Denies suicidal ideation, denies homicidal ideation, intent or plan; and there was no evidence of a formal thought or perceptual disturbance. * Attention: Attentive to interview * Orientation: Oriented to person, place, time, and circumstance * Memory: Intact for interview, not formally tested * Insight: Fair * Judgment: Fair Objective Labs Result Diagrams: 09/11/21 05:15 09/12/21 05:15 Labs: Laboratory Results - last 24 hr 09/11/21 09/11/21 09/12/21 15:19 15:19 05:15 PT 16.7 H INR 1.5 H Sodium 136 L Potassium 4.1 Chloride 107 Carbon Dioxide 26 BUN 11 Creatinine 0.64 Estimated GFR > 60.0 BUN/Creatinine Ratio 17.2 Glucose 103 H Calcium 8.4 Total Bilirubin 0.3 0.4 Conjugated Bilirubin 0.0 Unconjugated Bilirubin 0.4 AST 283 H 720 H ALT 241 H 704 H Alkaline Phosphatase 56 43 Total Protein 6.1 L 6.5 Albumin 3.4 L 3.6 Globulin 2.7 2.9 Albumin/Globulin Ratio 1.3 1.2 Acetaminophen < 10 L 09/12/21 06:29 PT 13.5 H INR 1.2 Sodium Potassium Chloride Carbon Dioxide BUN Creatinine Estimated GFR BUN/Creatinine Ratio Glucose Calcium Total Bilirubin Conjugated Bilirubin Unconjugated Bilirubin AST ALT Alkaline Phosphatase Total Protein Albumin Globulin Albumin/Globulin Ratio Acetaminophen PFSH Medical History Acute bacterial bronchitis Surgical History No history of previous surgery Social History household members: significant other Tobacco & Substance Use Smoking Status: Never smoker Assessment & Plan Assessment & Plan narrative: ASSESSMENT/MEDICAL DECISION MAKING The patient is a 31-year-old female who has been under significant psychosocial stressors including financial stress, substandard housing, social isolation, and after going through a fairly dark and rainy [place] winter noted significant symptoms of depression. She made a rather impulsive and half- hearted suicide gesture by taking overdose of Tylenol but then immediately acted to rectify the problem and sought medical help. DIAGNOSES/PROBLEMS Major depressive disorder, single episode, moderate, without psychotic features RECOMMENDATIONS 1. The patient does not require inpatient psychiatric hospitalization. 2. The patient is currently not felt to be suicidal and relatively low risk for harm to self or others at this time. 3. The patient should seek out or be referred to mental health counseling. 4. The patient may benefit from antidepressant medications and will discuss this with her before she is discharged. 5. The patient and her partner should consider accessing social service resources to improve their housing and employment situation. 6. Will continue to follow with you during patient's stay. Time Spent With Patient Time with patient: 30 to 49 minutes with 50% spent counseling/coordinating care
[2021-09-12] MEDS: BUDESONIDE 0.5 MG/2 ML NEB INH (20:30)
[2021-09-12 22:33] LABS: Albumin 3.7 g/dL (3.5-5.0); Albumin Globulin Ratio 1.2 (1.0-2.8); Alkaline Phosphatase 38 U/L (38-126); BUN Creatinine Ratio 10.8 (6-22); Bilirubin Total 0.4 mg/dL (0.2-1.3); Blood Urea Nitrogen 8 mg/dL (7-17); Carbon Dioxide 28 mmol/L (22-32); Chloride 103 mmol/L (98-107); Estimated Glomerular Filt Rate > 60.0 mL/min (>60); Globulin 3.1 g/dL (1.7-4.1); Glucose 159 mg/dL (70-100); HEMOLYSIS < 15 (0-50); Potassium 3.5 mmol/L (3.4-5.1); Sodium 136 mmol/L (137-145); Total Protein 6.8 g/dL (6.3-8.2)
[2021-09-12 22:39] LABS: Aspartate Aminotransferase 737 IU/L (14-36)
[2021-09-12 22:44] LABS: Alanine Aminotransferase 1210 IU/L (<35)
[2021-09-13 01:03] LABS: Bilirubin Unconjugated 0.4 mg/dL (0.0-1.1)
[2021-09-13 03:25] LABS: Add Manual Diff / Slide Review NO; Basophils Absolute Auto 0 /uL (0-100); Basophils Percent Auto 0.7 % (0-2); Eosinophils Absolute Auto 500 /uL (0-450); Eosinophils Percent Auto 12.9 % (2-4); Hematocrit 38.4 % (36-46); Hemoglobin 12.9 g/dL (12.0-16.0); Lymphocytes Absolute Auto 1300 /uL (1100-4500); Lymphocytes Percent Auto 30.8 % (25-40); Mean Corpuscular HGB Conc 33.5 % (30-36); Mean Corpuscular Hemoglobin 29.1 PG (26-34); Mean Corpuscular Volume 86.9 fL (80-100); Monocytes Absolute Auto 400 /uL (0-900); Monocytes Percent Auto 9.2 % (3-14); Neutrophils Absolute Auto 1900 /uL (1500-7000); Neutrophils Percent Auto 46.4 % (50-75); Platelet Count 252 X10^3/uL (150-400); Red Blood Cell Count 4.42 X10^6/uL (4.0-5.2); White Blood Cell Count 4.1 X10^3/uL (4.5-11.0)
[2021-09-13 03:30] VITALS: BP 100/62; PULSE 88; RESP 14; TEMP 36.7; O2SAT 98
[2021-09-13 03:35] LABS: INR 1.2 (0.9-1.3); Prothrombin Time 13.3 SECONDS (10.1-12.7)
[2021-09-13 03:40] LABS: Albumin 3.8 g/dL (3.5-5.0); Albumin Globulin Ratio 1.2 (1.0-2.8); Alkaline Phosphatase 44 U/L (38-126); Aspartate Aminotransferase 618 IU/L (14-36); Bilirubin Total 0.4 mg/dL (0.2-1.3); Bilirubin Unconjugated 0.4 mg/dL (0.0-1.1); Globulin 3.1 g/dL (1.7-4.1); HEMOLYSIS < 15 (0-50); Total Protein 6.9 g/dL (6.3-8.2)
[2021-09-13 03:41] LABS: BUN Creatinine Ratio 15.2 (6-22); Blood Urea Nitrogen 10 mg/dL (7-17); Calcium 8.7 mg/dL (8.4-10.2); Carbon Dioxide 27 mmol/L (22-32); Chloride 104 mmol/L (98-107); Estimated Glomerular Filt Rate > 60.0 mL/min (>60); Glucose 107 mg/dL (70-100); HEMOLYSIS < 15 (0-50); Potassium 3.7 mmol/L (3.4-5.1); Sodium 138 mmol/L (137-145)
[2021-09-13 03:51] LABS: Alanine Aminotransferase 1130 IU/L (<35)
--- NOTE | 2021-09-13 04:16 | PM.CALLCOV.1 ---
Call Coverage Note Note Narrative of Care Provided: NAC finished at 0418, LFT's are now trending down. Poison Control advised we can now stop NAC therapy. Will start gentle fluid hydration.
[2021-09-13] MEDS: SODIUM CHLORIDE 0.9% 1,000 ML 84 ML IV (04:28)
[2021-09-13 07:49] LABS: Magnesium 1.8 mg/dL (1.6-2.3); Phosphorous 4.6 mg/dL (2.5-4.5)
--- NOTE | 2021-09-13 09:04 | PC.NURSE ---
Assess- Patient is calm and eating breakfast. She states that she is feeling better today. No suicidal ideation noted. Up independently in room, patient uses call light for needs. She has a friend who has been staying with her.
[2021-09-13] MEDS: ENOXAPARIN 40 MG/0.4 ML SYRINGE SUBCUT (09:21)
[2021-09-13] MEDS: ALBUTEROL 2.5 MG/3 ML NEB (ADULT) INH (09:41)
[2021-09-13] MEDS: BUDESONIDE 0.5 MG/2 ML NEB INH (09:41)
[2021-09-13 09:42] VITALS: PULSE 94; RESP 18; O2SAT 98
[2021-09-13 09:48] VITALS: PULSE 89; RESP 20
--- NOTE | 2021-09-13 10:15 | P.DS_ITS ---
History of Present Illness History of Present Illness Date Patient Seen: 09/13/21 Time Patient Seen: 10:20 Chief complaint: Acetaminophen overdose Narrative: Kathia Olson is a 31 y.o. female with intermittent exercise-induced asthma who reportedly took 20-25 acetaminophen tablets 500 mg each at approximately 2200 on September 09 2021.? Per the ED provider the patient told her she has had significant financial issues and was feeling under a lot of pressure.? In my interview with the patient, she stated that she had significant menstrual cramps and started to take the Tylenol and ?it got out of hand she does complain of a headache, fatigue, nausea without vomiting, denies shortness of breath, chest pain, abdominal pain, dysuria, diarrhea or constipation. Social history:? She and her boyfriend, Rainer Li, live on a off grid home on [facility] without electricity or a regular bathroom.? They had moved there to take care of his ill aunt and and then when she improved, they decided to stay on [facility] and live.? Rainer her boyfriend, states that they want move to [place] where he needs to be to take care of his mother.? Patient was raised in [place] and went to [employer] school there, is originally from [place] [place] and has a sister in [place].? She has invited the sister to visit with them however the sister has not ?had the time? to visit her. No imaging studies were done.? ED consulted with [facility] and the patient was recommended for and N-acetylcystine protocol treatment. Patient is afebrile, blood pressure 102/50, heart rate 93, respiratory rate 17, oxygen saturation 96 9% on room air she weighs 62.5 kg with a BMI of 23.6.? CBC is unremarkable, she does have a little bit of lymphopenia, bicarb is 21, BUN 21, AST 115, ALT 111, ammonia is less than 9, urinalysis included many ?squamous cells? likely a contaminant and culture was not indicated.? Toxicology screen is negative and acetaminophen level is within normal limits as of today.? COVID-19 PCR is negative. Discharge Providers Provider Date of admission: 09/10/21 20:40 Discharge Date: 09/13/21 Primary care physician: Edwina Haro PA-C Consults: 09/10/21 18:55 Consult to INTERIOR HORTICULTURIST - Assistant Quality Manager Stat Comment: INTERIOR HORTICULTURIST Consult needed for:: Behavioral Health Assess 09/10/21 21:20 Consult to Assistant Quality Manager Routine Comment: Suicide attempt 09/12/21 11:28 Consult to Physician Routine Comment: Consulting Provider: Hernesto Hatfield Reason for consultation: Tylenol OD Has provider been notified: Yes Discharge provider: Celia Bhakta MD Summary Hospital Course Discharge Diagnosis: 1. Inadvertent acetaminophen overdose 2. Major depression 3. Exercise-induced asthma Hospital Course: The patient was admitted to the hospital after an inadvertent Tylenol overdose. She was placed on a NAC, for 16 hours and followed along with poison Control. Patient had her Tylenol level reduced to less than 10, however she did developed elevated liver function test. Her AST and ALT peaked at over 700. Continued on the NAC for an additional 16 hours. Her most recent liver function tests show improvement, her AST is 618 down from 737, her ALT is 11 30 down from 12 10. Based on feedback from poison control her in a.c. can be discontinued. The patient was seen in consultation by Dr. Hatfield from Psychiatry. He felt that the patient was not suicidal or homicidal but had major depression. He recommended initiation of antidepressant therapy. I spoke to the patient today she is agreeable to taking an antidepressant. She will be started on Prozac 20 mg daily. Patient has no nausea or complaints of pain. She will be discharged home today. Status at Discharge Cognitive/behavioral status at discharge: oriented Functional status at discharge: independent ambulation Overall status at discharge: patient is progressing back to baseline Exam Vital Signs (past 8 hours): - 09/13/21 03:30 09/13/21 09:42 09/13/21 09:48 Temperature 98.0 F Pulse Rate 88 94 H 89 Respiratory Rate 14 18 20 Blood Pressure 100/62 Pulse Oximetry 98 98 Oxygen Delivery Method Room Air Oxygen Flow Rate 0 Narrative Exam Narrative: Pleasant female lying in bed in no acute distress Resp Other: Lungs clear to auscultation Cardio Other: Cardiac exam: Regular rate and rhythm normal S1-S2 GI Other: Abdomen: Soft nontender nondistended Extrem Other: Extremities: No edema Objective Labs Result Diagrams: 09/13/21 03:15 09/13/21 03:15 Labs: Laboratory Results - last 24 hr 09/12/21 09/12/21 09/13/21 22:15 22:15 03:15 WBC 4.1 L RBC 4.42 Hgb 12.9 Hct 38.4 MCV 86.9 MCH 29.1 MCHC 33.5 RDW 13.0 Plt Count 252 Neut % (Auto) 46.4 L D Lymph % (Auto) 30.8 [place] % (Auto) 9.2 Eos % (Auto) 12.9 H Baso % (Auto) 0.7 Neut # (Auto) 1900 Lymph # (Auto) 1300 [place] # (Auto) 400 Eos # (Auto) 500 H Baso # (Auto) 0 PT INR Sodium 136 L Potassium 3.5 Chloride 103 Carbon Dioxide 28 BUN 8 Creatinine 0.74 Estimated GFR > 60.0 BUN/Creatinine Ratio 10.8 Glucose 159 H Calcium 9.0 Phosphorus Magnesium Total Bilirubin 0.4 Cancelled Conjugated Bilirubin 0.0 Unconjugated Bilirubin 0.4 AST 737 H Cancelled ALT 1210 H Cancelled Alkaline Phosphatase 38 Cancelled Total Protein 6.8 Cancelled Albumin 3.7 Cancelled Globulin 3.1 Cancelled Albumin/Globulin Ratio 1.2 Cancelled 09/13/21 09/13/21 09/13/21 03:15 03:15 03:15 WBC RBC Hgb Hct MCV MCH MCHC RDW Plt Count Neut % (Auto) Lymph % (Auto) [place] % (Auto) Eos % (Auto) Baso % (Auto) Neut # (Auto) Lymph # (Auto) [place] # (Auto) Eos # (Auto) Baso # (Auto) PT 13.3 H INR 1.2 Sodium 138 Potassium 3.7 Chloride 104 Carbon Dioxide 27 BUN 10 Creatinine 0.66 Estimated GFR > 60.0 BUN/Creatinine Ratio 15.2 Glucose 107 H Calcium 8.7 Phosphorus Magnesium Total Bilirubin 0.4 Conjugated Bilirubin 0.0 Unconjugated Bilirubin 0.4 AST 618 H ALT 1130 H Alkaline Phosphatase 44 Total Protein 6.9 Albumin 3.8 Globulin 3.1 Albumin/Globulin Ratio 1.2 09/13/21 09/13/21 03:15 03:15 WBC RBC Hgb Hct MCV MCH MCHC RDW Plt Count Neut % (Auto) Lymph % (Auto) [place] % (Auto) Eos % (Auto) Baso % (Auto) Neut # (Auto) Lymph # (Auto) [place] # (Auto) Eos # (Auto) Baso # (Auto) PT INR Sodium Potassium Chloride Carbon Dioxide BUN Creatinine Estimated GFR BUN/Creatinine Ratio Glucose Calcium Phosphorus 4.6 H Magnesium 1.8 Total Bilirubin Conjugated Bilirubin Unconjugated Bilirubin AST ALT Alkaline Phosphatase Total Protein Albumin Globulin Albumin/Globulin Ratio [facility] Medical History Acute bacterial bronchitis Surgical History No history of previous surgery Social History household members: significant other Smoking Status: Never smoker Discharge Assessment & Plan Assessment and Plan Assessment: Inadvertent acetaminophen overdose 2. Major depression 3. Exercise-induced asthma Plan of Treatment: Discharge home Follow-up with PCP next week Discharge Plan Discharge Plan Patient Disposition: Home Discharge orders & Medications Prescriptions: New fluoxetine [Prozac] 20 mg capsule 20 mg PO DAILY Qty: 30 0RF Continued albuterol sulfate [Proventil HFA] 90 mcg/actuation HFA aerosol inhaler 2 puff inhalation Q4-6H PRN (Reason: shortness of breath or wheezing) Qty: 18 4RF Rx Instructions: patient states she no longer takes. fluticasone propion-salmeterol [Advair Diskus] 500-50 mcg/dose blister with device 1 inh inhalation Q12H Qty: 60 4RF Discontinued methylprednisolone sod suc(PF) [Solu-Medrol (PF)] 125 mg/2 mL recon soln 125 mg IM ONCE Qty: 1 0RF Label Comments: no longer takes prednisone 20 mg tablet 20 mg PO DAILY Qty: 8 0RF Label Comments: No longer takes. Rx Instructions: 1 po q 12 hr x 3 days then 1 po qam x 2 days start 03-07-2021 No Action (DME) nebulizer and compressor Device See Rx Instructions .ROUTE .MEDSUPPLY Qty: 1 0RF Rx Instructions: As directed. Follow up/Referrals: Edwina Haro PA-C [Primary Care Provider] - Discharge Health Status Multidrug resistant organism: No MDRO Diet/Activity/Treatments Diet: Diet as Tolerated Visit Report/Discharge Packet Stand Alone Forms: Naloxone Standing Order WADOH Discharge Data Primary Care Provider: Edwina Haro Quality VTE Deep Vein Thrombosis/Pulmonary Embolism Present on Admission: No
[2021-09-13 10:20] VITALS: BP 119/68; PULSE 115; RESP 16; TEMP 37; O2SAT 99
--- NOTE | 2021-09-13 13:18 | CM.DPNOTE ---
Addendum entered by Tracy Mclean MARIZA 09/13/21 15:17: ADD: Never heard back from [facility] so completed an online referral form w/patient's permission. Used information provided by Dr Hatfield, psychiatrist to outline patient's need for counseling services and case management support on [facility], as soon as possible. JW Original Note: DC Note According to conversation w/Dr Hatfield and review of his consult note- patient is not a candidate for inpatient psychiatric stay and is cleared from psych stand point for DC home w/partner w/close outpatient MH f/u Met w/patient this morning, introduced role. Patient likes to be addressed as Vera. According to our conversation: Patient/partner Rainer had never intended to live on [facility] [address] and plan to move off [place], likely to return to [facility] as soon as they can afford to do so. 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 Patient has a PCP at the [facility] on [facility]. Patient and partner access the [employer] on [place] which patient states has been sufficient for us. Patient is not currently using food stamps; encouraged her to do so. Patient knows how to access social insurance administrator on [place], it is widely advertised at the [employer] and at the Library (where patient/partner often visit to access internet) Patient hopeful that she can speak to a counselor on [facility]; not only because she can more easily access this service if [place], also because she needs to speak to someone that understands [place] life Discussed [facility], who has a clinic site on [facility], and patient agreeable to referral. [facility] Office: [address] , [address], [place] [address] P F This LOADER OPERATOR/GROUND LEADER attempted to phone [facility] and had to LM; may end up completing their online referral form if no call back from access center today, patient and partner Rainer aware of this and will f/u w/ [facility] In addition; placed call to Crisis Line ([facility]) and requested a f/u call tomorrow at 1100, w/patient's permission; 1100- when patient was intending to be in town on [place] and would have cell concierge receptionist. Requested a f/u supportive call to check in with patient and remind her that she is not alone and there are services available to her, discussed the circumstance of patient's visit. Plan: DC w/supportive partner Rainer today, w/close outpatient f/u w/ PCP at [facility] and referral started to [facility] site. Both patient and partner very pleasant, appreciative, and eager to use outpatient resources offered MARIZA Acosta
== END 2021-09-13 13:10 | disposition home or self-care (01) | DRG 812 ==
LOC: ED 20:39 → AC 09-11 02:05
PROVIDERS: Internal Medicine; Admitting Provider Nurse Practitioner Family; Emergency Provider Emergency Medicine; PCP Physician Assistant; Referring Provider Emergency Medicine; Visit Provider Nurse Practitioner Family
DX: T39.1X1A Poisoning by 4-Aminophenol derivatives, accidental (unintentional), initial encounter (principal); F32.1 Major depressive disorder, single episode, moderate; R51.9 Headache, unspecified; R11.0 Nausea; J45.990 Exercise induced bronchospasm; Z20.822 Contact with and (suspected) exposure to COVID-19
CPT/HCPCS: 36415; 80048; 80053; 80076; 80305; 80320; 80329; 81003; 81015; 81025; 82140; 82248; 83605; 83690; 83735; 84100; 85025; 85610; 85730; 87077; 87086; 87186; 87635; 90792; 94640; 94760; 94762; 96365; 96375; 99284; C9803; G0480; J0132; J1650; J2405; J7613

== ENCOUNTER → 2024-08-22 12:21 | Outpatient (CLI) | payer OTHER, SELFPAY ==
[2024-07-18 13:13] VITALS: BMI 23.6
[2024-08-22 13:03] LABS: Appearance Urine UA SL CLOUDY; Bilirubin Urine UA NEGATIVE (NEGATIVE); Color Urine UA YELLOW; Glucose Urine UA NEGATIVE (Negative); Ketones Urine UA 1+ (NEGATIVE); Leukocyte Esterase Urine UA NEGATIVE (NEGATIVE); Nitrite Urine UA NEGATIVE (Negative); Occult Blood Urine UA NEGATIVE (Negative); Protein Urine UA NEGATIVE (Negative); Specific Gravity Urine UA 1.015 (1.000-1.035); Urobilinogen Urine UA 0.2 E.U./dL (0.2)
[2024-08-22 13:12] LABS: Add Manual Diff / Slide Review NO; Basophils Absolute Auto 0 /uL (0-100); Basophils Percent Auto 0.6 % (0-2); Eosinophils Absolute Auto 700 /uL (0-450); Eosinophils Percent Auto 8.9 % (2-4); Hematocrit 38.4 % (36-46); Hemoglobin 13.2 g/dL (12.0-16.0); Lymphocytes Absolute Auto 1400 /uL (1100-4500); Mean Corpuscular HGB Conc 34.4 % (30-36); Mean Corpuscular Hemoglobin 30.1 PG (26-34); Mean Corpuscular Volume 87.5 fL (80-100); Monocytes Absolute Auto 400 /uL (0-900); Monocytes Percent Auto 4.4 % (3-14); Neutrophils Absolute Auto 5500 /uL (1500-7000); Neutrophils Percent Auto 68.1 % (50-75); Platelet Count 272 X10^3/uL (150-400); Red Blood Cell Count 4.39 X10^6/uL (4.0-5.2); Red Cell Distribution Width 12.9 % (11.6-14.8)
[2024-08-22 15:50] LABS: HIV 1 & 2 Ab/Ag 4th Gen Combo NEGATIVE (NEGATIVE); Hep C Virus Ab w/Reflex Quant NEGATIVE s/c (NEGATIVE); Hepatitis B Surface Antigen NEGATIVE s/c (NEGATIVE)
[2024-08-22 17:40] LABS: Free T4, Direct Thyroxine 1.13 ng/dL (0.78-2.19)
[2024-08-22 17:53] LABS: Thyroid Stimulating Hormone 0.714 uIU/mL (0.47-4.68)
[2024-08-22 18:03] LABS: Alanine Aminotransferase 11 IU/L (<35); Albumin 4.2 g/dL (3.5-5.0); Albumin Globulin Ratio 1.6 (1.0-2.8); Alkaline Phosphatase 54 U/L (38-126); Aspartate Aminotransferase 19 IU/L (14-36); BUN Creatinine Ratio 14.3 (6-22); Bilirubin Total 0.3 mg/dL (0.2-1.3); Blood Urea Nitrogen 8 mg/dL (7-17); Calcium 9.3 mg/dL (8.4-10.2); Carbon Dioxide 18 mmol/L (22-32); Chloride 104 mmol/L (98-107); Estimated Glomerular Filt Rate > 60 mL/min (>60); Globulin 2.7 g/dL (1.7-4.1); Glucose 84 mg/dL (70-100); HEMOLYSIS < 15 (0-50); Potassium 4.1 mmol/L (3.4-5.1); Sodium 133 mmol/L (137-145); Total Protein 6.9 g/dL (6.3-8.2)
[2024-08-24 04:08] LABS: RPR Screen Non Reactive (Non Reactive)
== END ==
PROVIDERS: PCP Family Medicine; Referring Provider Family Medicine; Visit Provider Family Medicine
DX: Z34.00 Encounter for supervision of normal first pregnancy, unspecified trimester (principal)
CPT/HCPCS: 80053; 80055; 81003; 84439; 84443; 86787; 86803; 86850; 86900; 86901; 87086; 87389

== ENCOUNTER → 2024-09-26 10:19 | Outpatient (CLI) | payer OTHER, SELFPAY ==
[2024-07-18 13:13] VITALS: BMI 23.6
--- NOTE | 2024-09-26 10:20 | DI.US.S_ITS ---
PROCEDURE: US OB >= 14 WEEKS FETUS INDICATIONS: Complete Anatomy Scan OUTSIDE/PRIOR DATING DATA: Last menstrual period (LMP): Unknown. LMP-based estimated date of delivery (CELIA): 02/10/2025. First dating scan (date and location): 07/04/2024. [facility]. Estimated date of delivery (CELIA) from first dating scan: 01/27/2025. The calculations are made using the clinical CELIA of 02/10/2025. TECHNIQUE: Real-time scanning was performed of the fetus, with image documentation and biometric measurements. Endovaginal scanning: Not performed COMPARISON: Outside Facility, US, US OB >= 14 WEEKS FETUS, 07/04/2024, 17:16. FINDINGS: General: A single living intrauterine gestation is present. Presentation: Variable. Placenta: Placental position is anterior, without previa. Amniotic fluid index: 14.3 cm, normal range is 5-24 cm. Single deepest vertical pocket is 3.9 cm. heart rate: 145 beats per minute. Maternal cervical canal: 4.1 cm long. Normal lower limit is 2.5 cm. biometrics: Biparietal diameter: 4.6 cm, 20 weeks 0 days Head circumference: 17.5 cm, 20 weeks 0 days Abdominal circumference: 16.4 cm, 21 weeks 3 days Femur length: 3.2 cm, 20 weeks 0 days Clinically estimated gestational age: 20 weeks 3 days Composite gestational age from present scan: 20 weeks 3 days Estimated weight and percentile: 371 g, 60th percentile. Anatomic survey: Neuro: Ventricles are non-dilated at less than 10 mm. Cisterna magna is normal at 3-11 mm. Cerebellum is normal in size and morphology. Nuchal skin fold: Normal at less than 6 mm between 14-21 weeks gestational age. Face: Nose and lips, facial profile are normal. Spine: No evidence for spina bifida. Heart: 4-chambered heart is present, with normal ventricular outflow tracts. Diaphragm: Diaphragm is intact. Stomach: Left-sided stomach is present. Kidneys: No hydronephrosis. Normal is less than 5 mm in 2nd trimester, less than 7 mm in 3rd trimester. Cord: 3-vessel cord has orthotopic insertion. Bladder: Normal in size. Extremities: All 4 extremities identified. Left uterine fibroid measuring 7.7 x 5.8 x 5.7 cm. IMPRESSION: 1. Baig living intrauterine at 20 weeks 3 days based on today's ultrasound. Fetus is in the 60th percentile for weight. 2. Normal placenta and amniotic fluid. 3. Normal and complete anatomic survey. 4. Left uterine fibroid measuring 7.7 cm. We strive to produce accurate, complete, and clear reports of imaging services. To assist us in improving patient care, this report was composed using standard report templates and voice recognition software. Therefore, it may contain abnormal punctuation, insertions and/or omissions. Occasional wrong-word or sound-alike substitutions may occur. Though we review the report and make efforts to correct it, we do recommend that the report be read carefully in proper context to recognize any text inaccuracies. Dictated by: Kiko Peacock M.D. on 09/26/2024 at 13:48 Approved by: Kiko Peacock M.D. on 09/26/2024 at 13:57
== END ==
LOC: US 10:20
PROVIDERS: PCP Family Medicine; Referring Provider Family Medicine; Visit Provider Family Medicine
DX: O34.12 Maternal care for benign tumor of corpus uteri, second trimester; Z3A.20 20 weeks gestation of pregnancy; Z36.89 Encounter for other specified antenatal screening
CPT/HCPCS: 76811

== ENCOUNTER → 2024-10-17 10:01 | Outpatient (CLI) | payer OTHER, SELFPAY ==
[2024-07-18 13:13] VITALS: BMI 23.6
[2024-10-17 12:20] LABS: GTT (PREG) 1 Hour PP 50gm Dose 101 mg/dL (76-139)
== END ==
PROVIDERS: PCP Family Medicine; Referring Provider Family Medicine; Visit Provider Family Medicine
DX: Z34.00 Encounter for supervision of normal first pregnancy, unspecified trimester (principal)
CPT/HCPCS: 36415; 82950

== ENCOUNTER → 2024-12-12 13:06 | Outpatient (CLI) | payer OTHER, SELFPAY ==
[2024-07-18 13:13] VITALS: BMI 23.6
== END ==
PROVIDERS: PCP Family Medicine; Visit Provider Family Medicine
DX: Z34.00 Encounter for supervision of normal first pregnancy, unspecified trimester (principal); N89.8 Other specified noninflammatory disorders of vagina
CPT/HCPCS: 87086

== ENCOUNTER → 2025-01-20 14:00 | Outpatient (CLI) | payer OTHER, SELFPAY ==
[2024-07-18 13:13] VITALS: BMI 23.6
[2025-01-21 11:56] LABS: Strep Grp B PCR POS for Grp B Strep
== END ==
PROVIDERS: PCP Family Medicine; Visit Provider Family Medicine
DX: Z36.85 Encounter for antenatal screening for Streptococcus B (principal)
CPT/HCPCS: 87653

== ENCOUNTER 2025-01-30 05:56 | Inpatient (IN) | payer OTHER, SELFPAY ==
[2024-07-18 13:13] VITALS: BMI 23.6
[2025-01-30 07:10] LABS: Add Manual Diff / Slide Review NO; Hematocrit 36.4 % (36-46); Hemoglobin 12.5 g/dL (12.0-16.0); Lymphocytes Absolute Auto 1400 /uL (1100-4500); Mean Corpuscular HGB Conc 34.2 % (30-36); Mean Corpuscular Hemoglobin 30.4 PG (26-34); Mean Corpuscular Volume 88.8 fL (80-100); Platelet Count 187 X10^3/uL (150-400)
[2025-01-30 07:19] VITALS: BP 114/70
[2025-01-30 07:19] LABS: Alanine Aminotransferase 17 IU/L (<35); Albumin 3.3 g/dL (3.5-5.0); Albumin Globulin Ratio 1.1 (1.0-2.8); Alkaline Phosphatase 143 U/L (38-126); Blood Urea Nitrogen 8 mg/dL (7-17); Calcium 8.7 mg/dL (8.4-10.2); Carbon Dioxide 20 mmol/L (22-32); Chloride 109 mmol/L (98-107); Estimated Glomerular Filt Rate > 60 mL/min (>60); Globulin 2.9 g/dL (1.7-4.1); Glucose 88 mg/dL (70-99); HEMOLYSIS < 15 (0-50); Potassium 4.2 mmol/L (3.4-5.1); Sodium 134 mmol/L (137-145); Total Protein 6.2 g/dL (6.3-8.2)
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
[2025-01-30] MEDS: CEFAZOLIN 2 GM/100 ML PREMIX 100 ML IV (08:25)
[2025-01-30] MEDS: AZITHROMYCIN 500 MG in DEXTROSE 5% IN WATER 250 ML 250 MG IV (08:32)
--- NOTE | 2025-01-30 08:49 | SUR.OPER ---
Supine on Padded OR bed, head on pillow, safety belt at thigh, arms secured on padded arm boards at <90 degrees abduction. Bump under right buttock. Legs uncrossed with pillow under knees, gel pad to heels, tape over blanket to lower legs.
[2025-01-30] MEDS: TRANEXAMIC ACID 1,000 MG in SODIUM CHLORIDE 0.9% 100 ML 200 MG IV (09:02)
[2025-01-30] MEDS: ACETAMINOPHEN IV 1,000 MG/100 ML VIAL 400 MG IV (09:13)
--- NOTE | 2025-01-30 09:16 | SUR.OPER ---
Viable baby girl born at 0851 on 01/30/2025.
--- NOTE | 2025-01-30 09:40 | P.OP_ITS ---
Operative Date/Time/Diagnoses Date of procedure: 01/30/25 Time of procedure: 08:45 Pre-op diagnosis: Breech presentation Post-op diagnosis: same Procedure & Clinicians Procedure: Primary Low transverse CS Same procedure(s) as scheduled: Yes Indications: Breech presentation Surgeon: Kari Jolly Click Yes if Unassisted: No Precipitate Washer: Claudia Solis Reason for Precipitate Washer: Precipitate Washer required for the safe, effective, and timely completion of this surgery. The law office assistant was necessary to retract upon entry into the abdomen and uterus. Assisted with delivery of the with fundal pressure. Assisted wi th closure with retraction, holding suture, and closure of the contralateral fascia. Anesthesia Type: Epidural Operative Notes Findings: Normal ovaries and tubes. Intramural fibroid on midline fudus and on L lateral aspect of uterus Closure Type: primary Specimen(s): cord blood Intraoperative meds administered: Duramorph, Ketorolac, Pitocin and Tranexamic acid Applied: Catheter Estimated Blood Loss (mL): 400 Blood products transfused: none Procedure in detail: OPERATIVE COURSE: The patient was taken to the operating room where spinal anesthesia was placed. Ancef was given for surgical ppx and Azithro due to ROM. She was then prepared and draped in the normal sterile fashion in the dorsal supine position with a leftward tilt including abdominal prep and vaginal prep due to ROM. Anesthesia was tested and found to be adequate. A Pfannensteil skin incision was then made with the scalpel and carried through to the underlying layer of fascia with the scalpel. The fascia was incised in the midline and the incision extended laterally with the Newton scissors. The superior aspect of the fascial incision was then grasped with Niki clamps, elevated with the help of the surgical appliance fitter, and the underlying rectus muscles dissected off bluntly. Attention was then turned to the inferior aspect of the incision which, in a similar fashion, was grasped, tented up with Niki clamps, and the rectus muscle dissected off bluntly and sharply with Newton scissors. The rectus muscles were then in the midline, and the peritoneum was identified and entered bluntly. The peritoneal incision was then extended with good visualization of the bladder. Retraction was provided by the surgical appliance fitter. The bladder blade was then inserted and the vesicouterine peritoneum identified well below intended incision location so no bladder flap was created. The bladder blade was then reinserted and the lower uterine segment incised in a transverse fashion with the scalpel, with the surgical appliance fitter providing suction. The uterine incision was then extended superolaterally by pulling basilio perolaterally on both sides. Membranes were ruptured and fluid was clear. The bladder blade was removed the infant was found to be madelin breech presentation. The breech was elevated to the level of the hysterotomy. The breech was then easily delivered with fundal pressure. The long bones of the lower extremities were delivered atraumatically using a modified Pinard maneuver. The fetus was delivered to the level of the axilla. The anterior upper extremity was then identified and swept across the chest and delivered atraumatically. The infant was then rotated 45 degrees and the other upper extremity was delivered in a similar fashion atraumatically. The head was then flexed and delivered using a modified Mauriceau?Smellie?Veit maneuver.? The infant was towel stimulated and the cord was clamped and cut after a 60 second delay. The infant was handed off to the waiting nursing staff. Cord blood was collected. Time of delivery was 08:51. APGARS were 9 and 9 at one and five minutes respectively. The placenta was then delivered with gentle cord traction. The uterus was then exteriorized and cleared of all clots and debris. The uterine incision was repaired with 0 Vicryl in a running, locked fashion. A second layer of the same suture was used to obtain excellent hemostasis. The uterus was returned to the abdomen. The gutters were cleared of all clots. 1 g TXA was given at this time. Perclot was placed over the hysterotomy due to slow bleeds and then appeared hemostatic. The fascia was reapproximated with 0 Vicryl in a running fashion. The subcutaneous tissue was reapproximated with 2- 0 vicryl. The skin was closed with 4-0 monocryl. The surgical appliance fitter helped with retraction during closures. SPONGE AND NEEDLE COUNTS: Correct x3. DRESSING: Aquacel ANTICOAGULATION: SCDs applied prior to Surgery Preop antibiotics given (2g Ancef and Azithromycin The patient was taken to recovery room having tolerated procedure well. Complications: none [place] Baby 1: Delivery Date: 01/30/25 Delivery Time: 08:51 Infant Gender: Female Presentation: breech Details: madlein Placental Delivery Description: Spontaneous Cord Vessel Description: 3 Vessels score (1 min): 9 score (5 min): 9 Post-operative Condition: stable Disposition: PACU Aftercare: routine postop
[2025-01-30 09:45] VITALS: BP 118/81; PULSE 80; RESP 22; TEMP 36.6; O2SAT 99
[2025-01-30 09:50] VITALS: BP 115/70; PULSE 97; RESP 26; O2SAT 99
[2025-01-30 09:55] VITALS: BP 108/61; PULSE 93; RESP 22; O2SAT 99
[2025-01-30 10:00] VITALS: BP 106/55; PULSE 82; RESP 24; TEMP 36.3; O2SAT 97
--- NOTE | 2025-01-30 10:24 | SUR.PHASEI ---
1005 Pt transferred to by Gabino Bonilla with Gisela Bonilla with baby on chest.
[2025-01-30] MEDS: KETOROLAC 30 MG/ML VIAL IV ×2 (15:19→21:36)
[2025-01-30] MEDS: ACETAMINOPHEN 325 MG TABLET 650 MG PO ×2 (15:19→21:36)
[2025-01-30] MEDS: FLUTICASONE 120 SPRAY/16 GM SPRAY.SUSP NASAL (21:37)
[2025-01-30] MEDS: FLUTICASONE/SALMETEROL 500/50 INHALER 1 EACH INH (21:37)
[2025-01-31] MEDS: KETOROLAC 30 MG/ML VIAL IV (03:51)
[2025-01-31] MEDS: ACETAMINOPHEN 325 MG TABLET 650 MG PO ×4 (03:52→21:26)
--- NOTE | 2025-01-31 08:31 | PM.OBPN.1 ---
Subjective - OB Subjective Patient comments: no complaints and pain well controlled baby status: doing well and nursing well Interval history: Pt tolerating post-op pain well with oral medications. She is without significant difficulty. She is ambulating. She has voided. bleeding is minimal Exam Vital Signs (past 8 hours): Oxygen Delivery Method Room Air Narrative Exam Narrative: Gen: well appearing, NAD Skin: no rashes or pallor Abd: appropriate post-op tenderness, fundus firm below Umbilicus. Dressing with scant drainage stable from yesterday MSK: scant edema Objective Labs 01/30/25 06:45 01/30/25 06:45 Assessment & Plan Plan day: 1 plan OB: routine care, routine postop care and follow up 6 weeks Comments: 34 yo G1 on PDO1 following pLTCS for breech presentation - Pain well controlled on oral medications, continue tylenol, ibuprofen and PRN oxycodone - Bleeding minimal - control plans: TBD - f/up at 1 week and 6week PP visit Time-Based Coding :: [TOTAL MINUTES] spent with patient and on the chart (including review of chart, obtaining history, exam, reviewing outside data, placing orders, documenting exam and treatment plan, and counseling patient) on [DATE].
[2025-01-31 09:01] LABS: Add Manual Diff / Slide Review NO; Hematocrit 27.6 % (36-46); Hemoglobin 9.6 g/dL (12.0-16.0); Lymphocytes Absolute Auto 1200 /uL (1100-4500); Mean Corpuscular HGB Conc 34.8 % (30-36); Mean Corpuscular Hemoglobin 30.9 PG (26-34); Mean Corpuscular Volume 88.8 fL (80-100); Platelet Count 154 X10^3/uL (150-400)
[2025-01-31] MEDS: PRENATAL VIT,CALC/IRON/FOLIC 1 TABLET 1 TAB PO (10:07)
[2025-01-31] MEDS: IBUPROFEN 600 MG TABLET PO ×3 (10:07→21:26)
[2025-01-31] MEDS: MONTELUKAST 10 MG TABLET PO (21:27)
[2025-01-31] MEDS: FLUTICASONE 120 SPRAY/16 GM SPRAY.SUSP NASAL (21:28)
[2025-01-31] MEDS: FLUTICASONE/SALMETEROL 500/50 INHALER 1 EACH INH (21:29)
[2025-02-01] MEDS: ACETAMINOPHEN 325 MG TABLET 650 MG PO ×2 (04:08→12:26)
[2025-02-01] MEDS: IBUPROFEN 600 MG TABLET PO ×2 (04:09→12:26)
[2025-02-01] MEDS: MAGNESIUM HYDROXIDE 30 ML UDC PO (08:48)
[2025-02-01] MEDS: PRENATAL VIT,CALC/IRON/FOLIC 1 TABLET 1 TAB PO (08:48)
--- NOTE | 2025-02-01 10:04 | PM.OBDS.1 ---
Discharge Providers Provider Date of admission: 01/30/25 05:56 Discharge Date: 02/01/25 Primary care physician: Manny Cruz DO Consults: 01/30/25 09:52 Consult to Senior Manufacturing Engineer Routine Comment: 01/31/25 22:13 Consult to CROP RANCH HAND - Hand Pattern Marker Routine Comment: Hand Pattern Marker Consult needed for:: Other reason (Comment) Comment: recourses for first time mother, with challenging home life. Discharge provider: Kari Jolly MD Summary Hospital Course Date Patient Seen: 02/01/25 Time Patient Seen: 07:30 Hospital Course: 34 yo G1 who presented at 38w3d with SROM. ROM with clear fluid occured that morning around 02:00. complicated by breech presentation and complicated living situation (on a boat in [facility]). She also has asthma at baseline and a hx of SI wtih tylenol overdose priro to . She also has hx of GBS bacteriuria in . CS was completed without complication. she is doing well. She is well and has met with for assistance. SHe is struggling somewhat with mood related to poor sleep since delivery but will follow up with PCP in the next 5 days. Pain is well controlled with oral medications. Bleeding is as expcted Peripartum Data Delivery Method: Section complications: none Status at Discharge Cognitive/behavioral status at discharge: oriented Time Spent with Patient Time attestation: Total time spent providing and/or coordinating discharge services: Time spent: Less than 30 minutes Objective Labs 01/31/25 08:38 01/30/25 06:45 Exam Vital Signs (past 8 hours): Oxygen Delivery Method Room Air Narrative Exam Narrative: Gen: well appearing, NAD PSych: tearful during encounter Skin: no rashes or pallor Abd: appropriate post-op tenderness, fundus firm below Umbilicus. Dressing with scant drainage stable from yesterday MSK: scant edema improved from prior Discharge Plan Discharge Plan Patient Disposition: Home Discharge orders & Medications Prescriptions: New oxycodone 5 mg tablet 5 mg PO Q8H PRN (Reason: pain) Qty: 14 0RF Continued hydroxyzine pamoate [Vistaril] 25 mg capsule 25 mg PO BEDTIME PRN (Reason: for anxiety ) Qty: 60 0RF (DME) breast pump See Rx Instructions .Route .MEDSUPPLY Qty: 1 0RF Rx Instructions: for mother montelukast [Singulair] 10 mg tablet 10 mg PO DAILY azelastine 137 mcg (0.1 %) spray,non-aerosol 2 spray INTRANASAL Q12H Patient Comments: SPRAY ONE PUFF IN EACH NOSTRIL TWICE DAILY for SIX MONTHS Vitamin Plus Low Iron 27 mg iron- 1 mg tablet 1 tab PO DAILY albuterol sulfate [Proventil HFA] 90 mcg/actuation HFA aerosol inhaler 2 puff inhalation Q4-6H PRN (Reason: shortness of breath or wheezing) Qty: 3 1RF Rx Instructions: patient states she no longer takes. fluticasone propion-salmeterol [Advair Diskus] 500-50 mcg/dose blister with device 1 inh inhalation Q12H Qty: 180 1RF fluticasone propionate [Flonase Allergy Relief] 50 mcg/actuation spray,suspension 2 spray intranasal BID Qty: 16 5RF Rx Instructions: administer into each nostril Follow up/Referrals: Kari Jolly MD [Physician, Family Practice] Referral Note: ThursdayFebruary 06 at 11:00 with Manny Sigala DO [Primary Care Provider, Family Practice] Visit Report/Discharge Packet Stand Alone Forms: Patient Portal/API, Stroke Signs & Symptoms Discharge Data Primary Care Provider: Manny Cruz Discharges patient from system. Discharge Date/Time: 02/01/25 15:33
[2025-02-01 13:09] VITALS: BP 120/82; PULSE 99; RESP 16; TEMP 36.7
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
== END 2025-02-01 15:33 | disposition home or self-care (01) | DRG 540 ==
PROVIDERS: Admitting Provider Family Medicine; PCP Family Medicine; Referring Provider Family Medicine; Visit Provider Family Medicine
PROC: 10D00Z1 Extraction of Products of Conception, Low, Open Approach (ICD-10-PCS; CPT 59514; principal; 2025-01-30 08:00)
DX: O64.8XX0 Obstructed labor due to other malposition and malpresentation, not applicable or unspecified (principal); O34.13 Maternal care for benign tumor of corpus uteri, third trimester; D25.1 Intramural leiomyoma of uterus; Z3A.38 38 weeks gestation of pregnancy; Z37.0 Single live birth; O99.824 Streptococcus B carrier state complicating childbirth; O99.52 Diseases of the respiratory system complicating childbirth; J45.909 Unspecified asthma, uncomplicated; Z91.51 Personal history of suicidal behavior; Z59.89 Other problems related to housing and economic circumstances
CPT/HCPCS: 36415; 59050; 80053; 84112; 85025; 86850; 86900; 86901; G0379; J0131; J0690; J1885